=== PATIENT | female | born 1970 | race Caucasian/White ===

== ENCOUNTER 2019-01-03 11:26 | Emergency (ER) | payer SELFPAY ==
[2019-01-03] MEDS ORDERED: MORPHINE 4 MG/ML SYR ONE (13:42)
[2019-01-03] MEDS ORDERED: ONDANSETRON 4 MG/2 ML VIAL ONE (13:42)
--- NOTE | 2019-01-03 13:45 | RAD REPORT ---
EXAM DESCRIPTION: RAD - Hip Right 2 View - 01/03/2019 1:15 pm CLINICAL HISTORY: Trauma, right hip pain COMPARISON: None. FINDINGS: AP and frog-leg views of the right hip were obtained. There is no fracture or dislocation . No AVN or focal femoral head abnormality. Mild degenerative changes involve the articular margins of the acetabulum and femoral head. No joint effusion suspected. No periarticular abnormality. IMPRESSION: Mild degenerative change of the right hip joint. No fracture or acute finding.
[2019-01-03 13:59] LABS: Absolute Lymphocytes (CBC) 1.7 K/uL (0.7-4.9); Basophils % 0.6 % (0-1.3); Eosinophils % 2.6 % (0-4.4); Hematocrit 40.6 % (36.0-45.0); Lymphocytes % 24.2 % (15.3-44.8); Monocytes % 9.4 % (3.3-12.3); RBC Red Blood Cell Count 4.73 M/uL (3.86-4.86)
--- NOTE | 2019-01-03 14:46 | RAD REPORT ---
EXAM DESCRIPTION: CT - Hip Right W Con - 01/03/2019 2:31 pm CLINICAL HISTORY: Right hip pain, trauma COMPARISON: Right hip films January 03 TECHNIQUE: Following nonionic IV contrast administration, axial 2 millimeter thick images the right hip joint were obtained. Sagittal and coronal reformatted images were generated and reviewed. The CT scan was performed using dose optimization techniques as appropriate to a performed exam incl uding one or more of the following: Automated exposure control, adjustment of the mA and/or kV accord ing to patient size (this includes techniques or standardized protocols for targeted exams where dose is matched to indication/reason for exam) and use of iterative reconstruction technique. FINDINGS: No fracture of the proximal right femur. No joint effusion or periarticular acute process. Patient has degenerative change seen as spurring along the articular margins of the acetabulum and f emoral head. No AVN or focal femoral head abnormality. No hematoma, mass or other suspicious soft tissue finding along the right-side pelvic floor or periar ticular soft tissues. IMPRESSION: Mild degenerative change involving the acetabulum and femoral head. No fracture or acute bone finding. No periarticular hematoma, mass or suspicious soft tissue finding.
[2019-01-03] MEDS ORDERED: CYCLOBENZAPRINE 10 MG TAB ONE (15:33)
[2019-01-03] MEDS ORDERED: METHYLPREDNISOLONE 125 MG INJ ONE (15:33)
[2019-01-03] MEDS ORDERED: KETOROLAC 30 MG/ML INJ ONE (15:34)
[2019-01-03] MEDS ORDERED: HYDROCODONE/APAP 7.5/325 MG TAB ONE ×2 (15:34→15:38)
--- NOTE | 2019-01-03 17:37 | EDPHYS ---
Physician Documentation [facility] Name: Marie Ceballos Age: 48 yrs Sex: Female : 1970 Arrival Date: 01/03/2019 Time: 11:27 Bed 5 Private MD: ED Physician German Ward HPI: 01/03 15:25 This 48 yrs old Female presents to ER via Wheelchair with complaints of Hip kdr Pain. 15:25 The patient or guardian reports decreased range of motion, pain. that occurred at home, kdr sustained from Awkward position and slipping with pop in hip joint. Since, she had been able to bear weight and ambulate but has been very painful in the joint. She has no history of prior injury or other associated problem There is no obvious deformity, The patient is able to self ambulate. The patient is able to bear their full body weight. The patient's discomfort radiates to the posterior aspect of left lateral abdomen. Onset: The symptoms/episode began/occurred gradually, 1 week(s) ago. Modifying factors: The symptoms are alleviated by remaining still, the symptoms are aggravated by any movement, extension, external rotation, flexion, internal rotation, weight bearing. Associated signs and symptoms: Loss of consciousness: the patient experienced no loss of consciousness, Pertinent positives: None. Pertinent negatives: abdominal pain, altered mental status, chest pain, diarrhea, dizziness. Severity of symptoms: At their worst the symptoms were severe, in the emergency department the symptoms have improved, moderately. The patient has not experienced similar symptoms in the past. The patient has not recently seen a physician. 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 - Social history:: Smoking status: Patient/guardian denies using tobacco. - Ebola Screening: : Patient denies travel to an Ebola-affected area in the 21 days before illness onset. ROS: 15:25 Constitutional: Negative for fever, chills, and weight loss, Eyes: Negative for injury, kdr pain, redness, and discharge, Neck: Negative for injury, pain, and swelling, Cardiovascular: Negative for chest pain, palpitations, and edema, Respiratory: Negative for shortness of breath, cough, wheezing, and pleuritic chest pain, Abdomen/GI: Negative for abdominal pain, nausea, vomiting, diarrhea, and constipation, Back: Negative for injury and pain, Skin: Negative for injury, rash, and discoloration, Neuro: Negative for headache, weakness, numbness, tingling, and seizure activity. Psych: Negative for depression, anxiety, suicide ideation, homicidal ideation, and hallucinations, Allergy/Immunology: Negative for hives, rash, and allergies, Endocrine: Negative for neck swelling, polydipsia, polyuria, polyphagia, and marked weight changes, Hematologic/Lymphatic: Negative for swollen nodes, abnormal bleeding, and unusual bruising. 15:25 MS/extremity: Positive for decreased range of motion, pain, swelling, tenderness, Negative for ecchymosis, erythema, laceration, tenderness, tingling, warmth. Exam: 15:25 Constitutional: This is a well developed, well nourished patient who is awake, alert, kdr and in no acute distress. Head/Face: Normocephalic, atraumatic. Eyes: Pupils equal round and reactive to light, extra-ocular motions intact. Lids and lashes normal. Conjunctiva and sclera are non-icteric and not injected. Cornea within normal limits. Periorbital areas with no swelling, redness, or edema. Neck: Trachea midline, no thyromegaly or masses palpated, and no cervical lymphadenopathy. Supple, full range of motion without nuchal rigidity, or vertebral point tenderness. No Meningismus. Chest/axilla: Normal chest wall appearance and motion. Nontender with no deformity. No lesions are appreciated. Cardiovascular: Regular rate and rhythm with a normal S1 and S2. No gallops, murmurs, or rubs. Normal PMI, no JVD. No pulse deficits. Respiratory: Lungs have equal breath sounds bilaterally, clear to auscultation and percussion. No rales, rhonchi or wheezes noted. No increased work of breathing, no retractions or nasal flaring. Abdomen/GI: Soft, non-tender, with normal bowel sounds. No distension or tympany. No guarding or rebound. No evidence of tenderness throughout. Back: No spinal tenderness. No costovertebral tenderness. Full range of motion. Skin: Warm, dry with normal turgor. Normal color with no rashes, no lesions, and no evidence of cellulitis. MS/ Extremity: Pulses equal, no cyanosis. Neurovascular intact. Full, normal range of motion. Neuro: Awake and alert, GCS 15, oriented to person, place, time, and situation. Cranial nerves II-XII grossly intact. Motor strength 5/5 in all extremities. Sensory grossly intact. Cerebellar exam normal. Normal gait. Psych: Awake, alert, with orientation to person, place and time. Behavior, mood, and affect are within normal limits. Vital Signs: 11:43 BP 167 / 83; Pulse 89; Resp 18; Temp 97.0; Pulse Ox 97% on R/A; Weight 158.76 kg (M); aj1 Height 5 ft. 11 in. (180.34 cm) (R); 12:00 BP 117 / 74; Pulse 71; Resp 16; Pulse Ox 98% ; bp 14:00 BP 116 / 64; Pulse 62; Resp 18; Pulse Ox 96% ; bp 11:43 Body Mass Index 48.81 (158.76 kg, 180.34 cm) aj1 MDM: 15:13 Patient medically screened. kdr 15:25 Data reviewed: vital signs, nurses notes, lab test result(s), radiologic studies. kdr Counseling: I had a detailed discussion with the patient and/or guardian regarding: the historical points, exam findings, and any diagnostic results supporting the discharge/admit diagnosis, lab results. 01/03 12:42 Order name: CBC with Diff; Complete Time: 14:04 kdr 01/03 12:42 Order name: Chem 7; Complete Time: 14:04 kdr 01/03 12:26 Order name: Hip Right 2 View XRAY; Complete Time: 13:53 kdr 01/03 12:31 Order name: Hip Right W Con; Complete Time: 15:06 EDMS Administered Medications: 13:44 Drug: morphine 4 mg Route: IVP; Site: right antecubital; bp 13:44 Drug: Zofran 4 mg Route: IVP; Site: right antecubital; bp 15:30 Drug: SOLU-Medrol 125 mg Route: IVP; Site: right antecubital; bp 15:31 Drug: [place] (7.5 mg-325 mg) 2 tabs Route: PO; bp 15:31 Drug: Flexeril 10 mg Route: PO; bp 15:31 Drug: TORadol - Ketorolac 15 mg Route: IVP; Site: right antecubital; bp Disposition: 01/03/19 15:13 Discharged to Home. Impression: Pain in right hip. - Condition is Stable. - Discharge Instructions: Musculoskeletal Pain, Hip Pain, Joint Pain, [id number]. - Prescriptions for Ibuprofen 800 mg Oral Tablet - take 1 tablet by ORAL route every 8 hours As needed take with food; 30 tablet. Robaxin 500 mg Oral Tablet - take 2 tablet by ORAL route every 6 hours As needed; 40 tablet. Tramadol 50 mg Oral Tablet - take 1 tablet by ORAL route every 8 hours as needed; 12 tablet. Medrol (Francois) 4 mg Oral Tablets, Dose Pack - take 1 tablet by ORAL route as directed - follow package instructions; 1 packet. - Medication Reconciliation Form, Thank You Letter, Prescription Opioid Use, Work release form form. - Follow up: Private Physician; When: 2 - 3 days; Reason: If symptoms return, Further diagnostic work-up, Recheck today's complaints, Continuance of care, Re-evaluation by your physician. - Problem is new. - Symptoms have improved. Signatures: Dispatcher [employer] Bita Younger RN RN aj1 German Ward MD MD kdr Jace Arora RN RN bp Corrections: (The following items were deleted from the chart) 15:32 15:13 01/03/2019 15:13 Discharged to Home. Impression: Pain in right hip. Condition is bp Stable. Forms are Medication Reconciliation Form, Thank You Letter, Antibiotic Education, Prescription Opioid Use. Follow up: Private Physician; When: 2 - 3 days; Reason: If symptoms return, Further diagnostic work-up, Recheck today's complaints, Continuance of care, Re-evaluation by your physician. Problem is new. Symptoms have improved. kdr
--- NOTE | 2019-01-03 17:37 | ER ---
Nurse's Notes [facility] Name: Marie Ceballos Age: 48 yrs Sex: Female : 1970 Arrival Date: 01/03/2019 Time: 11:27 Bed 5 Private MD: Diagnosis: Pain in right hip Presentation: 01/03 11:40 Presenting complaint: Patient states: "Last year I hurt my hip while I was at work, its aj1 agitated me for the longest, but last week I walked outside and there was a waterhose and it rolled, I didn't see it and my whole leg popped. I can't really raise my leg up very far it just kills me, and then today I hit the threshold with my foot and pains shot up my leg." Patient reports pain to right hip that radiates down to the right knee. Transition of care: patient was not received from another setting of care. Onset of symptoms was December 2018. Risk Assessment: Do you want to hurt yourself or someone else? Patient reports no desire to harm self or others. Initial Sepsis Screen: Does the patient meet any 2 criteria? No. Patient's initial sepsis screen is negative. Does the patient have a suspected source of infection? No. Patient's initial sepsis screen is negative. Care prior to arrival: None. 11:40 Method Of Arrival: Wheelchair aj1 11:40 Acuity: CARMELLA 4 aj1 Triage Assessment: 11:43 General: Appears in no apparent distress. uncomfortable, Behavior is calm, cooperative, aj1 appropriate for age. Pain: Complains of pain in right hip Pain radiates to right leg Pain currently is 7 out of 10 on a pain scale. Pain: Alleviated by repositioning. Neuro: Level of Consciousness is awake, alert, obeys commands. Cardiovascular: Patient's skin is warm and dry. Respiratory: Airway is patent Respiratory effort is even, unlabored, Respiratory pattern is regular, symmetrical. 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 - Social history:: Smoking status: Patient/guardian denies using tobacco. - Ebola Screening: : Patient denies travel to an Ebola-affected area in the 21 days before illness onset. Screenin:45 Abuse screen: Denies threats or abuse. Denies injuries from another. Nutritional bp screening: No deficits noted. Tuberculosis screening: No symptoms or risk factors identified. Fall Risk None identified. Assessment: 11:45 General: SEE TRIAGE NOTE. bp 13:45 Reassessment: ALL CURRENT ORDERS COMPLETED, CT PENDING. bp Vital Signs: 11:43 BP 167 / 83; Pulse 89; Resp 18; Temp 97.0; Pulse Ox 97% on R/A; Weight 158.76 kg (M); aj1 Height 5 ft. 11 in. (180.34 cm) (R); 12:00 BP 117 / 74; Pulse 71; Resp 16; Pulse Ox 98% ; bp 14:00 BP 116 / 64; Pulse 62; Resp 18; Pulse Ox 96% ; bp 11:43 Body Mass Index 48.81 (158.76 kg, 180.34 cm) aj1 ED Course: 11:27 Patient arrived in ED. as 11:31 German Ward MD is Attending Physician. kdr 11:43 Triage completed. aj1 11:43 Arm band placed on Patient placed in an exam room. aj1 11:45 Patient has correct armband on for positive identification. Bed in low position. Call bp light in reach. Side rails up X2. Adult w/ patient. 11:47 Jace Arora, RN is Primary Nurse. bp 13:12 X-ray completed. Patient tolerated procedure well. jb2 13:14 Hip Right 2 View XRAY In Process Unspecified. EDMS 13:15 Radiology exam delayed due to lab results not completed at this time. (BUN/Creatinine). sj 13:44 Inserted saline lock: 20 gauge in right antecubital area, using aseptic technique. bp 14:31 Hip Right W Con In Process Unspecified. EDMS Administered Medications: 13:44 Drug: morphine 4 mg Route: IVP; Site: right antecubital; bp 13:44 Drug: Zofran 4 mg Route: IVP; Site: right antecubital; bp 15:30 Drug: SOLU-Medrol 125 mg Route: IVP; Site: right antecubital; bp 15:31 Drug: [place] (7.5 mg-325 mg) 2 tabs Route: PO; bp 15:31 Drug: Flexeril 10 mg Route: PO; bp 15:31 Drug: TORadol - Ketorolac 15 mg Route: IVP; Site: right antecubital; bp Outcome: 15:13 Discharge ordered by . kdr 15:32 Patient left the ED. bp Signatures: Dispatcher [employer] EDBita Peace RN RN German Denton MD MD kdr Buechter, Jesse jb2 Jones, Susan sj Martinez, Amelia as Peltier, Brian, RN RN bp
== END 2019-01-03 15:32 | disposition home or self-care (01) ==
LOC: ER 11:26
DX: M25.551 Pain in right hip (principal)
CPT/HCPCS: 36415; 73701; 80048; 85025; 96374; 96375; 99283; J2405; J2930; Q9967

== ENCOUNTER 2021-04-30 08:14 | Emergency (ER) | payer OTHER, SELFPAY ==
[2021-04-30 09:22] LABS: Absolute Lymphocytes (CBC) 1.6 K/uL (0.7-4.9); Basophils % 0.7 % (0-1.3); Hematocrit 37.2 % (36.0-45.0); Lymphocytes % 20.7 % (15.3-44.8); MPV 7.8 fL (7.6-11.3); Protime INR 0.94
[2021-04-30] MEDS ORDERED: FUROSEMIDE 40 MG/4 ML VIAL ONE (09:31)
[2021-04-30] MEDS ORDERED: KETOROLAC 30 MG/ML INJ ONE (09:31)
[2021-04-30 09:46] LABS: ALT/SGPT 36 U/L (12-78); AST/SGOT 20 U/L (15-37); Albumin 3.2 g/dL (3.4-5.0); Alkaline Phosphatase 94 U/L (45-117); BUN Blood Urea Nitrogen 19 mg/dL (7-18); Bicarbonate 24 mmol/L (21-32); Bilirubin Direct 0.1 mg/dL (0-0.2); Bilirubin Total 0.3 mg/dL (0.2-1.0); Glucose Level 96 mg/dL (74-106); NT PRO-BNP 215 pg/mL (<125); Sodium Level 140 mmol/L (136-145); Troponin (Emerg Dept Use Only) < 0.02 ng/mL (0.0-0.045)
--- NOTE | 2021-04-30 10:57 | RAD REPORT ---
EXAM DESCRIPTION: [place] Single View04/30/2021 9:27 am CLINICAL HISTORY: Swelling COMPARISON: none FINDINGS: The lungs appear clear of acute infiltrate. The heart is normal size IMPRESSION: No acute abnormalities displayed
--- NOTE | 2021-04-30 11:16 | RAD REPORT ---
EXAM DESCRIPTION: CT - Hip Right Wo Con - 04/30/2021 11:00 am CLINICAL HISTORY: Right hip pain status post fall COMPARISON: X-rays on the same date. TECHNIQUE: Computed axial tomography of the right hip were obtained. Coronal and sagittal reconstruc tion was performed. All CT scans are performed using dose optimization technique as appropriate and may include automated exposure control or mA/KV adjustment according to patient size. FINDINGS: Moderate osteoarthritis involves the right hip consisting of osteophytes and joint space n arrowing. No fracture or dislocation is seen. The surrounding muscles of the right hip are normal size and density. IMPRESSION: No evidence of a right hip fracture.
--- NOTE | 2021-04-30 11:58 | EDPHYS ---
Physician Documentation [facility] Name: Marie Ceballos Age: 50 yrs Sex: Female : 1970 Arrival Date: 04/30/2021 Time: 08:18 Bed 5 Private MD: ED Physician German Ward HPI: 04/30 08:49 This 50 yrs old Female presents to ER via Wheelchair with complaints of Leg kdr Swelling, Feet Swelling. 08:49 Swelling and pain of her lower extremities for the past few weeks. Onset: The kdr symptoms/episode began/occurred gradually, 2 week(s) ago. Severity of symptoms: At their worst the symptoms were mild moderate just prior to arrival, in the emergency department the symptoms are unchanged. The patient has not experienced similar symptoms in the past. The patient has not recently seen a physician. Patient states that she has been attending her father who 2 days ago. During that. Time she has been staying with him in the hospital and has not been able to get her body completely flat with her legs dependent for most of the last 2 weeks. As result she has had increased swelling to her lower extremities. She has not had this kind of problem before. She denies chest pain or shortness of breath.. 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 - Social history:: Smoking status: Patient denies any tobacco usage or history of. ROS: 08:49 Constitutional: Negative for fever, chills, and weight loss, Eyes: Negative for injury, kdr pain, redness, and discharge, ENT: Negative for injury, pain, and discharge, Neck: Negative for injury, pain, and swelling, Cardiovascular: Negative for chest pain, palpitations, and edema, Respiratory: Negative for shortness of breath, cough, wheezing, and pleuritic chest pain, Abdomen/GI: Negative for abdominal pain, nausea, vomiting, diarrhea, and constipation, Back: Negative for injury and pain, : Negative for injury, bleeding, discharge, and swelling, MS/Extremity: Negative for injury and deformity, Skin: Negative for injury, rash, and discoloration, Neuro: Negative for headache, weakness, numbness, tingling, and seizure activity. Psych: Negative for depression, anxiety, suicide ideation, homicidal ideation, and hallucinations, Allergy/Immunology: Negative for hives, rash, and allergies, Endocrine: Negative for neck swelling, polydipsia, polyuria, polyphagia, and marked weight changes, Hematologic/Lymphatic: Negative for swollen nodes, abnormal bleeding, and unusual bruising. 08:49 Cardiovascular: Positive for edema. Exam: 08:49 Constitutional: This is a well developed, well nourished patient who is awake, alert, kdr and in no acute distress. Head/Face: Normocephalic, atraumatic. Eyes: Pupils equal round and reactive to light, extra-ocular motions intact. Lids and lashes normal. Conjunctiva and sclera are non-icteric and not injected. Cornea within normal limits. Periorbital areas with no swelling, redness, or edema. Neck: Trachea midline, no thyromegaly or masses palpated, and no cervical lymphadenopathy. Supple, full range of motion without nuchal rigidity, or vertebral point tenderness. No Meningismus. Chest/axilla: Normal chest wall appearance and motion. Nontender with no deformity. No lesions are appreciated. Cardiovascular: Regular rate and rhythm with a normal S1 and S2. No gallops, murmurs, or rubs. Normal PMI, no JVD. No pulse deficits. Respiratory: Lungs have equal breath sounds bilaterally, clear to auscultation and percussion. No rales, rhonchi or wheezes noted. No increased work of breathing, no retractions or nasal flaring. Abdomen/GI: Soft, non-tender, with normal bowel sounds. No distension or tympany. No guarding or rebound. No evidence of tenderness throughout. Back: No spinal tenderness. No costovertebral tenderness. Full range of motion. Skin: Warm, dry with normal turgor. Normal color with no rashes, no lesions, and no evidence of cellulitis. MS/ Extremity: Pulses equal, no cyanosis. Neurovascular intact. Full, normal range of motion. Neuro: Awake and alert, GCS 15, oriented to person, place, time, and situation. Cranial nerves II-XII grossly intact. Motor strength 5/5 in all extremities. Sensory grossly intact. Cerebellar exam normal. Normal gait. Psych: Awake, alert, with orientation to person, place and time. Behavior, mood, and affect are within normal limits. 08:49 Cardiovascular: Edema: 3+ edema to level of left midcalf, left ankle, left foot, left toes, right midcalf, right ankle, right foot and right toes. Vital Signs: 08:31 BP 119 / 88; Pulse 88; Resp 17; Temp 96.9; Pulse Ox 97% on R/A; Weight 154.22 kg (R); jl7 Height 5 ft. 11 in. (180.34 cm); Pain 9/10; 09:36 BP 123 / 70; Pulse 76; Resp 16; Pulse Ox 100% ; bp 11:00 BP 143 / 76; Pulse 81; Resp 16; Pulse Ox 100% ; bp 12:23 BP 127 / 75; Pulse 79; Resp 17; Temp 98.1; Pulse Ox 100% ; bp 08:31 Body Mass Index 47.42 (154.22 kg, 180.34 cm) jl7 MDM: 08:49 Data reviewed: vital signs, nurses notes, lab test result(s), radiologic studies. kdr Counseling: I had a detailed discussion with the patient and/or guardian regarding: the historical points, exam findings, and any diagnostic results supporting the discharge/admit diagnosis, lab results, radiology results, the need for outpatient follow up. 11:58 Patient medically screened. kdr 04/30 08:45 Order name: Basic Metabolic Panel kdr 04/30 08:45 Order name: CBC with Diff; Complete Time: 10:16 kdr 04/30 08:45 Order name: LFT's; Complete Time: 10:16 kdr 04/30 08:45 Order name: Magnesium; Complete Time: 10:16 kdr 04/30 08:45 Order name: NT PRO-BNP; Complete Time: 10:16 kdr 04/30 08:45 Order name: PT-INR; Complete Time: 10:16 kdr 04/30 08:45 Order name: Troponin (emerg Dept Use Only); Complete Time: 10:16 kdr 04/30 08:45 Order name: XRAY Chest (1 view); Complete Time: 11:54 kdr 10/15 08:45 Order name: IV Saline Lock; Complete Time: 09:01 kdr 04/30 08:45 Order name: Labs collected and sent; Complete Time: 09:01 kdr 04/30 08:45 Order name: Basic Metabolic Panel; Complete Time: 10:16 EDMS 04/30 10:44 Order name: Hip Right Wo Con; Complete Time: 11:54 EDMS 04/30 08:45 Order name: O2 Per Protocol; Complete Time: 09:01 kdr 04/30 08:45 Order name: O2 Sat Monitoring; Complete Time: 09: kdr Administered Medications: 09:00 Drug: Lasix (furosemide) 40 mg Route: IVP; Site: right forearm; bp 09:57 Follow up: Response: No adverse reaction bp 09:00 Drug: Ketorolac 15 mg Route: IVP; Site: right forearm; bp 09:57 Follow up: Response: No adverse reaction bp Disposition Summary: 04/30/21 11:58 Discharge Ordered Location: Home kdr Condition: Stable kdr Diagnosis - Edema, unspecified kdr - Peripheral, lower extremity edema kdr - Right hip pain kdr Followup: kdr - With: Private Physician - When: 2 - 3 days - Reason: If symptoms return, Further diagnostic work-up, Recheck today's complaints, Continuance of care, Re-evaluation by your physician Discharge Instructions: - Discharge Summary Sheet kdr - Edema, [id number] kdr - Hip Pain kdr Forms: - Medication Reconciliation Form kdr - Thank You Letter kdr - Prescription Opioid Use kdr Prescriptions: - Lasix 20 mg Oral Tablet - take 1 tablet by ORAL route once daily; 20 tablet; Refills: 0, Product kdr Selection Permitted - Tramadol 50 mg Oral Tablet - take 1 tablet by ORAL route every 8 hours as needed; 12 tablet; Refills: 0, kdr Product Selection Permitted Signatures: [facility] German Ward MD MD kdr Raghu Gonzalez RN RN jl7 Jace Arora RN RN bp Corrections: (The following items were deleted from the chart) 08:34 08:33 PSHx: Total abdominal hysterectomy; joshua jl7
--- NOTE | 2021-04-30 11:58 | ER ---
Nurse's Notes [facility] Name: Marie Ceballos Age: 50 yrs Sex: Female : 1970 Arrival Date: 04/30/2021 Time: 08:18 Bed 5 Private MD: Diagnosis: Edema, unspecified;Peripheral, lower extremity edema;Right hip pain Presentation: 04/30 08:31 Chief complaint: Patient states: Bilateral leg and feet swelling and pain x 1.5 weeks. jl7 Coronavirus screen: At this time, the client does not indicate any symptoms associated with coronavirus-19. Ebola Screen: No symptoms or risks identified at this time. Initial Sepsis Screen: Does the patient meet any 2 criteria? No. Patient's initial sepsis screen is negative. Does the patient have a suspected source of infection? No. Patient's initial sepsis screen is negative. Risk Assessment: Do you want to hurt yourself or someone else? Patient reports no desire to harm self or others. Onset of symptoms was April 19, 2021. 08:31 Method Of Arrival: Wheelchair jl7 08:31 Acuity: CARMELLA 3 jl7 Triage Assessment: 08:33 General: Appears in no apparent distress. uncomfortable, Behavior is calm, cooperative, jl7 appropriate for age. Pain: Complains of pain in right leg and left leg Pain currently is 9 out of 10 on a pain scale. DEAN: 08:33 LMP N/A - Hysterectomy jl7 Historical: - Allergies: 08:33 No Known Allergies; jl7 - Home Meds: 08:33 None [Active]; jl7 - PMHx: 08:33 None; jl7 - PSHx: 08:33 Cholecystectomy; Appendectomy; Tonsillectomy; partial hysterectomy; left knee; jl7 - Immunization history:: Adult Immunizations not up to date, Client reports having NOT received the Covid vaccine. - Social history:: Smoking status: Patient denies any tobacco usage or history of. Screenin:45 Abuse screen: Denies threats or abuse. Denies injuries from another. Nutritional bp screening: No deficits noted. Tuberculosis screening: No symptoms or risk factors identified. Fall Risk None identified. Assessment: 08:45 General: Appears in no apparent distress. uncomfortable, obese, Behavior is bp cooperative, appropriate for age, anxious. Pain: Complains of pain in right leg and left leg. Neuro: Level of Consciousness is awake, alert, obeys commands, Oriented to Appropriate for age. Cardiovascular: Patient's skin is warm and dry. Rhythm is sinus rhythm. Respiratory: Reports shortness of breath on exertion. GI: Abdomen is non-distended, obese. : No signs and/or symptoms were reported regarding the genitourinary system. EENT: No deficits noted. Derm: Skin is red, BILATERAL CALVES. Musculoskeletal: Swelling present in right leg and left leg. 09:45 Reassessment: No changes from previously documented assessment. Patient and/or family bp updated on plan of care and expected duration. Pain level reassessed. Patient is alert, oriented x 3, equal unlabored respirations, skin warm/dry/pink. PT DIARESING DEFFECTIVELY. VSS STABLE ON MONITOR. 11:00 Reassessment: No changes from previously documented assessment. Patient and/or family bp updated on plan of care and expected duration. Pain level reassessed. Patient is alert, oriented x 3, equal unlabored respirations, skin warm/dry/pink. 12:21 Reassessment: PT D/C HOME AMBULATORY WITH FAMILY, DX WITH PERIPHERAL EDEMA. bp Vital Signs: 08:31 BP 119 / 88; Pulse 88; Resp 17; Temp 96.9; Pulse Ox 97% on R/A; Weight 154.22 kg (R); jl7 Height 5 ft. 11 in. (180.34 cm); Pain 9/10; 09:36 BP 123 / 70; Pulse 76; Resp 16; Pulse Ox 100% ; bp 11:00 BP 143 / 76; Pulse 81; Resp 16; Pulse Ox 100% ; bp 12:23 BP 127 / 75; Pulse 79; Resp 17; Temp 98.1; Pulse Ox 100% ; bp 08:31 Body Mass Index 47.42 (154.22 kg, 180.34 cm) jl7 ED Course: 08:18 Patient arrived in ED. as 08:23 German Ward MD is Attending Physician. kdr 08:33 Triage completed. jl7 08:33 Arm band placed on right wrist. jl7 08:45 Patient has correct armband on for positive identification. Bed in low position. Call bp light in reach. Side rails up X2. 08:50 Jace Arora, STEVEN is Primary Nurse. bp 09:00 Inserted saline lock: 20 gauge in right forearm, using aseptic technique. Blood bp collected. 09:27 XRAY Chest (1 view) In Process Unspecified. EDMS 11:00 Hip Right Wo Con In Process Unspecified. EDMS 12:23 No provider procedures requiring assistance completed. IV discontinued, intact, bp bleeding controlled, No redness/swelling at site. Pressure dressing applied. Administered Medications: 09:00 Drug: Lasix (furosemide) 40 mg Route: IVP; Site: right forearm; bp 09:57 Follow up: Response: No adverse reaction bp 09:00 Drug: Ketorolac 15 mg Route: IVP; Site: right forearm; bp 09:57 Follow up: Response: No adverse reaction bp Outcome: 11:58 Discharge ordered by . kdr 12:23 Discharged to home ambulatory. bp 12:23 Condition: stable 12:23 Discharge instructions given to patient, Instructed on discharge instructions, follow up and referral plans. medication usage, Demonstrated understanding of instructions, follow-up care, medications, Prescriptions given X 2. 12:24 Patient left the ED. bp Signatures: Dispatcher [employer] EDMS German Ward MD MD kdr Martinez, Amelia as Leal, Jahala, RN RN [email or web address] Jace Arora, RN RN bp Corrections: (The following items were deleted from the chart) 08:34 08:33 PSHx: Total abdominal hysterectomy; joshua jl7
[2021-04-30 12:30] VITALS: O2SAT 100
[2021-04-30 12:33] VITALS: BP 127/75; TEMP 98.1
== END 2021-04-30 12:24 | disposition home or self-care (01) ==
LOC: ER 08:14
DX: R60.0 Localized edema (principal); M25.551 Pain in right hip
CPT/HCPCS: 85025; 80048; 36415; 83735; 85610; 80076; 84484; 83880; 73700; 71045; 96375; 96374; 99284; J1940

== ENCOUNTER 2021-05-09 10:26 | Observation (INO) | payer OTHER ==
--- NOTE | 2021-05-09 11:15 | RAD REPORT ---
EXAM DESCRIPTION: RAD - Chest Single View - 05/09/2021 11:06 am CLINICAL HISTORY: Cough;Dyspnea Chest pain. COMPARISON: Chest Single View dated 04/30/2021 FINDINGS: Portable technique limits examination quality. Interstitial markings are mildly prominent which may represent a viral infection or bronchitis. The h eart is upper limit normal in size. No displaced fractures.
[2021-05-09] MEDS ORDERED: ASPIRIN 81 MG CHEWABLE TABLET ONE (11:31)
[2021-05-09] MEDS ORDERED: FAMOTIDINE 20 MG/2 ML VIAL IV ONE (11:31)
--- NOTE | 2021-05-09 11:54 | EDPHYS ---
Physician Documentation [facility] Name: Marie Ceballos Age: 50 yrs Sex: Female : 1970 Arrival Date: 05/09/2021 Time: 10:28 Bed 8 Private MD: ANNA Physician Sushant Rosario HPI: 05/09 10:51 This 50 yrs old Female presents to ER via Unassigned with complaints of Chest [place] Pressure, Leg Swelling, Shortness Of Breath. 10:51 The patient or guardian reports chest pain that is located primarily in the anterior [place] chest wall, bilaterally. Onset: 2 day(s) ago. The pain does not radiate. Associated signs and symptoms: Pertinent positives: lower extremity swelling, shortness of breath. The chest pain is described as a pressure. Modifying factors: The symptoms are alleviated by nothing. the symptoms are aggravated by nothing. Severity of pain: At its worst the pain was mild in the emergency department the pain is unchanged. The patient has not experienced similar symptoms in the past. Historical: - Allergies: 10:52 No Known Allergies; ss - Home Meds: 10:52 Lasix 40 mg Oral tab 1 tab once daily [Active]; ss - PMHx: 10:52 Congestive heart failure; ss - PSHx: 10:52 Appendectomy; Cholecystectomy; left knee; partial hysterectomy; Tonsillectomy; ss - Immunization history:: Adult Immunizations up to date, Client reports having NOT received the Covid vaccine. - Social history:: Smoking status: Patient denies any tobacco usage or history of. - Family history:: not pertinent. ROS: 10:51 Constitutional: Negative for fever, chills, and weight loss, Eyes: Negative for injury, [place] pain, redness, and discharge, ENT: Negative for injury, pain, and discharge, Neck: Negative for injury, pain, and swelling, Cardiovascular: Negative for chest pain, palpitations, and edema, Abdomen/GI: Negative for abdominal pain, nausea, vomiting, diarrhea, and constipation, Back: Negative for injury and pain, : Negative for injury, bleeding, discharge, and swelling, MS/Extremity: Negative for injury and deformity, Skin: Negative for injury, rash, and discoloration, Neuro: Negative for headache, weakness, numbness, tingling, and seizure, Psych: Negative for depression, anxiety, suicide ideation, homicidal ideation, and hallucinations, Allergy/Immunology: Negative for hives, rash, and allergies, Endocrine: Negative for neck swelling, polydipsia, polyuria, polyphagia, and marked weight changes, Hematologic/Lymphatic: Negative for swollen nodes, abnormal bleeding, and unusual bruising. 10:51 Respiratory: Positive for cough, shortness of breath, at rest. 10:51 MS/extremity: Positive for decreased range of motion, pain, swelling, tenderness, warmth, of the right leg and left leg. Exam: 10:51 Constitutional: This is a well developed, well nourished patient who is awake, alert, [place] and in no acute distress. Head/Face: Normocephalic, atraumatic. Eyes: Pupils equal round and reactive to light, extra-ocular motions intact. Lids and lashes normal. Conjunctiva and sclera are non-icteric and not injected. Cornea within normal limits. Periorbital areas with no swelling, redness, or edema. ENT: Nares patent. No nasal discharge, no septal abnormalities noted. Tympanic membranes are normal and external auditory canals are clear. Oropharynx with no redness, swelling, or masses, exudates, or evidence of obstruction, uvula midline. Mucous membranes moist. Neck: Trachea midline, no thyromegaly or masses palpated, and no cervical lymphadenopathy. Supple, full range of motion without nuchal rigidity, or vertebral point tenderness. No Meningismus. Chest/axilla: Normal chest wall appearance and motion. Nontender with no deformity. No lesions are appreciated. Cardiovascular: Regular rate and rhythm with a normal S1 and S2. No gallops, murmurs, or rubs. Normal PMI, no JVD. No pulse deficits. Respiratory: Lungs have equal breath sounds bilaterally, clear to auscultation and percussion. No rales, rhonchi or wheezes noted. No increased work of breathing, no retractions or nasal flaring. Abdomen/GI: Soft, non-tender, with normal bowel sounds. No distension or tympany. No guarding or rebound. No evidence of tenderness throughout. Back: No spinal tenderness. No costovertebral tenderness. Full range of motion. Skin: Warm, dry with normal turgor. Normal color with no rashes, no lesions, and no evidence of cellulitis. Neuro: Awake and alert, GCS 15, oriented to person, place, time, and situation. Cranial nerves II-XII grossly intact. Motor strength 5/5 in all extremities. Sensory grossly intact. Cerebellar exam normal. Normal gait. Psych: Awake, alert, with orientation to person, place and time. Behavior, mood, and affect are within normal limits. 10:51 Musculoskeletal/extremity: ROM: full active range of motion, full passive range of motion, Circulation is intact in all extremities. Sensation intact. Compartment Syndrome exam of affected extremity: is normal. DVT Exam: negative Homans' sign noted on exam, no appreciated bluish discoloration, pain, swelling, tenderness, erythema, increased warmth, that is moderate, of the right leg and left leg. Vital Signs: 10:28 BP 141 / 83; Pulse 88; Resp 18; Temp 97.3(TE); Pulse Ox 99% on R/A; Weight 181.44 kg; ss Height 5 ft. 11 in. (180.34 cm); Pain 9/10; 11:43 BP 127 / 73; Pulse 75; Resp 20; Pulse Ox 100% ; ch5 11:57 BP 127 / 73; Pulse 77; Resp 18; Pulse Ox 99% on R/A; Pain 9/10; tw5 13:34 BP 118 / 73; Pulse 82; Resp 18; Pulse Ox 100% on R/A; ch5 10:28 Body Mass Index 55.79 (181.44 kg, 180.34 cm) ss MDM: 10:34 Patient medically screened. [place] 10:54 Differential diagnosis: abnormal EKG, acute pericarditis, anxiety, pancreatitis, [place] pneumonia, pulmonary embolus, stable angina, unstable angina. HEART Score: ECG: Normal (0), Age: > 45 and < 65 years (1), Risk Factors: > or = 3 Risk factors for atherosclerotic disease (2), [Hypertension] [+ Family HX] [Obesity] Troponin: < or = 1 x Normal Limit (0). The patient was given aspirin in the Emergency Department. The patient's deep vein thrombosis risk score was calculated as follows: the affected calf is swollen more than 3 cm when compared to the asymptomatic extremity (1.0 Pts) pitting edema is noted only to the symptomatic leg (1.0 Pts0 Total Score: 1 to 2 points. This patient was found to be at moderate risk for a deep vein thrombosis by using the Well's assessment criteria. The patient's pulmonary embolism risk score was calculated as follows: Total Score: 0-2 points. This patient was found to be at low risk for a pulmonary embolism by using the Well's assessment criteria. CIARA Risk Score: 1 - Three or more CAD risk factors, TOTAL SCORE = 1. Data reviewed: vital signs, nurses notes, lab test result(s), EKG, radiologic studies, CT scan, doppler, plain films. Data interpreted: monitor worker: rate is 88 beats/min, rhythm is regular, Pulse oximetry: on room air is 99 %. Test interpretation: by ED physician or midlevel provider: ECG, plain radiologic studies. Counseling: I had a detailed discussion with the patient and/or guardian regarding: the historical points, exam findings, and any diagnostic results supporting the discharge/admit diagnosis, the presence of at least one elevated blood pressure reading (>120/80) during this emergency department visit, lab results, radiology results, the need for further work-up and treatment in the hospital. 05/09 10:51 Order name: Basic Metabolic Panel [facility] 05/09 10:51 Order name: CBC with Diff [facility] 05/09 10:51 Order name: LFT's [facility] 05/09 10:51 Order name: Magnesium [facility] 05/09 10:51 Order name: NT PRO-BNP [facility] 05/09 10:51 Order name: PT-INR [facility] 05/09 10:51 Order name: Troponin (emerg Dept Use Only) [facility] 05/09 10:51 Order name: Lipase [facility] 05/09 10:51 Order name: Blood Culture Adult (2) [facility] 05/09 10:51 Order name: Lactate; Complete Time: 12:38 [facility] 05/09 10:51 Order name: Basic Metabolic Panel [facility] 05/09 10:51 Order name: CBC with Automated Diff; Complete Time: 12:38 [facility] 05/09 10:51 Order name: Liver (Hepatic) Function [facility] 05/09 10:51 Order name: XRAY Chest (1 view); Complete Time: 11:32 [facility] 05/09 10:51 Order name: EKG; Complete Time: 10:52 05/09 10:51 Order name: Cardiac monitoring; Complete Time: 10:54 [facility] 05/09 10:51 Order name: EKG - Nurse/Tech; Complete Time: 10:54 [facility] 05/09 10:51 Order name: US Extremity Venous W Compression Otoniel [facility] 05/09 10:51 Order name: CT Chest For PE Angio [facility] 05/09 10:51 Order name: Magnesium [facility] 05/09 10:51 Order name: NT PRO-BNP [facility] 05/09 10:51 Order name: Protime (+INR); Complete Time: 12:38 [facility] 05/09 10:51 Order name: Troponin (Emerg Dept Use Only) [facility] 05/09 12:05 Order name: COVID-19/FLU A+B; Complete Time: 12:06 [facility] 05/09 13:18 Order name: CT [facility] 05/09 10:51 Order name: IV Saline Lock; Complete Time: 11:54 [facility] 05/09 10:51 Order name: Labs collected and sent; Complete Time: 11:30 [facility] 05/09 10:51 Order name: O2 Per Protocol; Complete Time: 10:54 [facility] 05/09 10:51 Order name: O2 Sat Monitoring; Complete Time: 10:54 [place] Administered Medications: 11:29 Drug: Pepcid (famotidine) 20 mg Route: IVP; Site: right antecubital; ch5 11:56 Follow up: Response: No adverse reaction tw5 11:30 Drug: Aspirin Chewable Tablet 324 mg Route: PO; ch5 11:56 Follow up: Response: No adverse reaction tw5 11:57 Drug: Lovenox (enoxaparin) 100 mg Route: Sub-Q; Site: left lower abdomen; tw5 13:31 Follow up: Response: No adverse reaction ss 13:31 Drug: Lasix (furosemide) 20 mg Route: IVP; Site: left antecubital; ch5 Disposition Summary: 05/09/21 11:53 Hospitalization Ordered Hospitalization Status: Observation [place] Provider: Abhinav Cruz cha Location: Telemetry/MedSurg (observation) [place] Condition: Stable [place] Problem: new [place] Symptoms: have improved [place] Bed/Room Type: Standard [place] Room Assignment: 207(05/09/21 12:53) dw Diagnosis - Morbid (severe) obesity due to excess calories [place] - Edema, unspecified [place] - Cardiomegaly [place] - Chest pain, unspecified [place] - Systolic (congestive) heart failure [place] Forms: - Medication Reconciliation Form [place] - SBAR form [place] Signatures: Dispatcher [employer] EDMS Latanya Cloud RN RN dw Anderson, Corey, MD MD cha Smirch, Shelby, RN RN Ralf Veliz RN RN [facility] Cecy Parkinson 5 Corrections: (The following items were deleted from the chart) 11:27 10:52 CORONAVIRUS+BRZ ordered. EDSD EDMS 12:53 11:53 [place] olivas
--- NOTE | 2021-05-09 11:54 | ER ---
Nurse's Notes [facility] Name: Marie Ceballos Age: 50 yrs Sex: Female : 1970 Arrival Date: 05/09/2021 Time: 10:28 Bed 8 Private MD: Diagnosis: Morbid (severe) obesity due to excess calories;Edema, unspecified;Cardiomegaly;Chest pain, unspecified;Systolic (congestive) heart failure Presentation: 05/09 10:28 Chief complaint: Patient states: Bilateral leg swelling and redness that began 3 weeks ss ago with intermittent shortness of breath and chest tightness. Pt was seen in the ER and told to increase her Lasix from 20 mg to 40 mg. Cardiology appointment is scheduled fro Monday. Coronavirus screen: Client denies travel out of the [place] in the last 14 days. Ebola Screen: Patient denies exposure to infectious person. Patient denies travel to an Ebola-affected area in the 21 days before illness onset. Initial Sepsis Screen: Does the patient meet any 2 criteria? No. Patient's initial sepsis screen is negative. Does the patient have a suspected source of infection? No. Patient's initial sepsis screen is negative. Risk Assessment: Do you want to hurt yourself or someone else? Patient reports no desire to harm self or others. Onset of symptoms was April 18, 2021. 10:28 Method Of Arrival: Wheelchair ss 10:28 Acuity: CARMELLA 3 ss Triage Assessment: 11:50 General: Appears in no apparent distress. Behavior is calm, cooperative. ch5 11:50 Pain: Complains of pain in chest. ch5 Historical: - Allergies: 10:52 No Known Allergies; ss - Home Meds: 10:52 Lasix 40 mg Oral tab 1 tab once daily [Active]; ss - PMHx: 10:52 Congestive heart failure; ss - PSHx: 10:52 Appendectomy; Cholecystectomy; left knee; partial hysterectomy; Tonsillectomy; ss - Immunization history:: Adult Immunizations up to date, Client reports having NOT received the Covid vaccine. - Social history:: Smoking status: Patient denies any tobacco usage or history of. - Family history:: not pertinent. Screenin:31 Abuse screen: Denies threats or abuse. Denies injuries from another. Nutritional ch5 screening: No deficits noted. Tuberculosis screening: No symptoms or risk factors identified. Fall Risk None identified. Assessment: 11:31 Reassessment: No changes from previously documented assessment. 5 11:53 Pain: Pain radiates to right leg and left leg Pain began for two weeks. Cardiovascular: tw5 Heart tones S1 S2 present. Respiratory: Reports shortness of breath. 11:57 Cardiovascular: Pulses are palpable in right dorsalis pedis artery and left dorsalis tw5 pedis artery Edema is 3+ to left midcalf, left ankle, left foot, left toes, right midcalf, right ankle, right foot and right toes. 12:50 Reassessment: Pt to CT VIA stretcher. ss 13:20 Reassessment: Back from CT. Awaiting results. PT to restroom VIA wheelchair to give ss urine specimen. Vital Signs: 10:28 BP 141 / 83; Pulse 88; Resp 18; Temp 97.3(TE); Pulse Ox 99% on R/A; Weight 181.44 kg; ss Height 5 ft. 11 in. (180.34 cm); Pain 9/10; 11:43 BP 127 / 73; Pulse 75; Resp 20; Pulse Ox 100% ; ch5 11:57 BP 127 / 73; Pulse 77; Resp 18; Pulse Ox 99% on R/A; Pain 9/10; tw5 13:34 BP 118 / 73; Pulse 82; Resp 18; Pulse Ox 100% on R/A; ch5 10:28 Body Mass Index 55.79 (181.44 kg, 180.34 cm) ED Course: 10:28 Patient arrived in ED. as 10:34 Sushant Rosario MD is Attending Physician. [facility] 10:38 Patient has correct armband on for positive identification. Placed in gown. Bed in low mh5 position. Call light in reach. Side rails up X2. Adult w/ patient. Warm blanket given. teletypesetter monitor on. Pulse ox on. NIBP on. 10:52 Triage completed. 10:52 Arm band placed on right wrist. 11:00 EKG done, by ED staff, reviewed by Sushant Rosario MD. 5 11:06 XRAY Chest (1 view) In Process Unspecified. EDMS 11:15 Ralf Veliz RN is Primary Nurse. [facility] 11:15 COVID swab sent to lab. mh5 11:30 Troponin (emerg Dept Use Only) Sent. ch5 11:30 PT-INR Sent. ch5 11:30 NT PRO-BNP Sent. ch5 11:30 Magnesium Sent. ch5 11:30 LFT's Sent. ch5 11:30 CBC with Diff Sent. ch5 11:30 Lipase Sent. ch5 11:30 Blood Culture Adult (2) Sent. ch5 11:30 Lactate Sent. ch5 11:30 Basic Metabolic Panel Sent. ch5 11:30 Liver (Hepatic) Function Sent. ch5 11:30 CBC with Automated Diff Sent. ch5 11:30 NT PRO-BNP Sent. ch5 11:30 Magnesium Sent. ch5 11:30 Protime (+INR) Sent. ch5 11:30 Troponin (Emerg Dept Use Only) Sent. ch5 11:31 No provider procedures requiring assistance completed. ch5 11:41 Inserted saline lock: 22 gauge in left antecubital area, using aseptic technique. ch5 11:52 Abhinav Cruz is Hospitalizing Provider. [facility] 11:54 Basic Metabolic Panel Sent. 5 11:54 Lipase Sent. 5 11:57 Ultrasound at the bedside. tw5 11:57 Patient maintains SpO2 saturation greater than 95% on room air. tw5 12:35 US Extremity Venous W Compression Otoniel In Process Unspecified. EDMS 13:34 Patient admitted, IV remains in place. ch5 Administered Medications: 11:29 Drug: Pepcid (famotidine) 20 mg Route: IVP; Site: right antecubital; ch5 11:56 Follow up: Response: No adverse reaction tw5 11:30 Drug: Aspirin Chewable Tablet 324 mg Route: PO; ch5 11:56 Follow up: Response: No adverse reaction tw5 11:57 Drug: Lovenox (enoxaparin) 100 mg Route: Sub-Q; Site: left lower abdomen; tw5 13:31 Follow up: Response: No adverse reaction 13:31 Drug: Lasix (furosemide) 20 mg Route: IVP; Site: left antecubital; 5 Outcome: 11:53 Decision to Hospitalize by Provider. [place] 13:34 Admitted to Med/surg 5 13:34 Condition: improved 13:34 Instructed on the need for admit. 14:02 Patient left the ED. iw Signatures: Dispatcher [employer] EDMS Sushant Rosario MD MD cha Martinez, Amelia as Rosalva Rodriguez, RN RN Brandi Burk RN RN ss Martinez, Maria [facility] Ralf Veliz RN RN [facility] Cecy Parkinson [facility] Corrections: (The following items were deleted from the chart) 11:27 11:15 CORONAVIRUS+ drawn and sent. [address] 13:33 12:50 General: Appears in no apparent distress. Behavior is calm, cooperative, [place] [id number]
[2021-05-09 12:05] LABS: SARS-COV-2 RT PCR NEGATIVE (NEGATIVE)
[2021-05-09 12:15] LABS: Absolute Lymphocytes (CBC) 1.6 K/uL (0.7-4.9); Basophils % 0.6 % (0-1.3); Hematocrit 38.5 % (36.0-45.0); Lymphocytes % 22.9 % (15.3-44.8); MPV 7.8 fL (7.6-11.3); RBC Red Blood Cell Count 4.54 M/uL (3.86-4.86)
[2021-05-09 12:16] LABS: Protime INR 1.03
[2021-05-09] MEDS ORDERED: ENOXAPARIN 100 MG/ML SYR SQ ONE (12:17)
--- NOTE | 2021-05-09 12:36 | P.HP ---
Certification for Inpatient Patient admitted to: Inpatient With expected LOS: >2 Midnights Practitioner: I am a practitioner with admitting privileges, knowledge of patient current condition, hospital course, and medical plan of care. Services: Services provided to patient in accordance with Admission requirements found in Title 42 Section 412.3 of the Code of Federal Regulations Patient History Date of Service: 05/09/21 Reason for admission: Shortness of breath, lower extremity swelling History of Present Illness: 50-year-old morbidly obese woman with no known past medical history presented to the emergency department with a complaint bilateral lower extremity redness and swelling that has not responded outpatient therapy with lasix. She also reports progressive shortness of breath. This is her 3rd visit to the ED over the past 2 weeks. She denied any chest pain. She stated she is undergoing work-up for weight reduction surgery. CTA thorax done in the emergency department demonstrated mild pulmonary edema. No leukocytosis. Initial troponin negative. Patient is admitted for CHF exacerbation that has failed outpatient therapy. Allergies No Known Allergies Allergy (Verified 05/09/21 14:03) Home Medications: Furosemide [Lasix] 40 mg PO DAILY 05/09/21 Potassium Chloride 10 meq PO DAILY 05/09/21 - Past Medical/Surgical History -: Morbid obesity -: Cholecystectomy -: Left knee arthroscopy -: Appendectomy -: Partial hysterectomy - Family History Father -: Heart disease Mother -: Heart disease - Social History Smoking Status: Never smoker Alcohol use: No CD- Drugs: No Place of Residence: Home Review of Systems Other: Patient denied any fever or loss of appetite. She denied any chest pain or palpitation. Except as documented, all other systems reviewed and negative. Physical Examination - Physical Exam General: Alert, In no apparent distress, Oriented x3, Obese HEENT: Atraumatic, PERRLA, Mucous membr. moist/pink, EOMI, Sclerae nonicteric Neck: Supple, JVD not distended Respiratory: Clear to auscultation bilaterally, Normal air movement Cardiovascular: Regular rate/rhythm, Normal S1 S2, No murmurs, Edema (Bilateral lower extremities) Gastrointestinal: Normal bowel sounds, Soft and benign, Non-distended, No tenderness Musculoskeletal: Swelling (Bilateral legs), Tenderness (Bilateral legs) Integumentary: No breakdown, Erythema (Bilateral legs) Neurological: Normal speech, Normal strength at 5/5 x4 extr, Cranial nerves 3-12 intact Lymphatics: No axilla or inguinal lymphadenopathy - Studies Laboratory Data (last 24 hrs) 05/09/21 11:26: PT 11.9, INR 1.03 05/09/21 11:26: WBC 7.10, Hgb 12.7, Hct 38.5, Plt Count 245 Assessment and Plan - Problems (Diagnosis) (1) Acute CHF Current Visit: Yes Status: Acute (2) Venous stasis dermatitis of both lower extremities Current Visit: Yes Status: Acute (3) Leg edema Current Visit: Yes Status: Acute (4) Morbid obesity due to excess calories Current Visit: Yes Status: Acute - Plan Admit to the medical floor. Start IV Lasix. Keep lower extremities elevated. Obtain echocardiogram. Troponin trended negative. Recent venous Doppler of lower extremities unremarkable, no DVT. Fluid restriction. Monitor intake and output. No fever, no leukocytosis. Erythema is bilateral. Cellulitis is unlikely - Advance Directives Does patient have a Living Will: No Does patient have a Durable POA for Healthcare: No
--- NOTE | 2021-05-09 12:45 | RAD REPORT ---
EXAM DESCRIPTION: US - Extrem Venous W Compress Otoniel - 05/09/2021 12:35 pm CLINICAL HISTORY: Pain;Swelling Bilateral leg edema and swelling. COMPARISON: Extrem Venous W Compress Otoniel dated 05/04/2021 TECHNIQUE: Real-time sonographic interrogation of the left and right lower extremity deep venous sys tems was performed. FINDINGS: Normal compressibility, flow augmentation, phasic flow and spontaneous flow is identified in both the left and right lower extremity deep venous systems. IMPRESSION: No sonographic evidence of left or right lower extremity deep venous thrombosis.
--- NOTE | 2021-05-09 13:17 | RAD REPORT ---
EXAM DESCRIPTION: CT - Chest For Pe Angio - 05/09/2021 1:08 pm CLINICAL HISTORY: Chest pain. Chest pain;Dyspnea COMPARISON: No comparisons TECHNIQUE: CT angiogram of the pulmonary arteries was performed with MIP. All CT scans are performed using dose optimization technique as appropriate and may include automated exposure control or mA/KV adjustment according to patient size. FINDINGS: No evidence of pulmonary thromboembolism. No acute aortic finding demonstrated. Aberrant right subclavian artery noted, normal variant. Mild interstitial pulmonary edema is suspected. No significant pericardial or pleural fluid. No concerning bony finding. IMPRESSION: No evidence of pulmonary thromboembolism. Mild interstitial pulmonary edema.
[2021-05-09 13:28] LABS: ALT/SGPT 40 U/L (12-78); AST/SGOT 25 U/L (15-37); Albumin 3.4 g/dL (3.4-5.0); Alkaline Phosphatase 99 U/L (45-117); BUN Blood Urea Nitrogen 13 mg/dL (7-18); Bicarbonate 30 mmol/L (21-32); Bilirubin Direct < 0.1 mg/dL (0-0.2); Bilirubin Total 0.5 mg/dL (0.2-1.0); Glucose Level 101 mg/dL (74-106); Lipase 58 U/L (73-393); Magnesium 1.9 mg/dL (1.8-2.4); NT PRO-BNP 134 pg/mL (<125); Potassium 4.1 mmol/L (3.5-5.1); Protein, Total 7.5 g/dL (6.4-8.2); Sodium Level 141 mmol/L (136-145); Troponin (Emerg Dept Use Only) < 0.02 ng/mL (0.0-0.045)
[2021-05-09] MEDS ORDERED: FUROSEMIDE 20 MG/ 2ML VIAL ONE (13:51)
[2021-05-09] MEDS ORDERED: INFLUENZA VACCINE (for 6+ mo) 0.5 ML DOSE IMVAC ONE (16:00)
[2021-05-09 17:05] VITALS: BMI 57.2
[2021-05-09] MEDS: FUROSEMIDE 40 MG/4 ML VIAL IV SCH (17:23)
[2021-05-09] MEDS: TRAMADOL HCL 50 MG TAB PO PRN ×2 (17:32→22:53)
[2021-05-09] MEDS ORDERED: MORPHINE 2 MG/ML SYR IM ONE (20:09)
[2021-05-10] MEDS: MORPHINE 2 MG/ML SYR IM PRN ×4 (00:07→13:03)
[2021-05-10 05:41] LABS: Absolute Lymphocytes (CBC) 1.4 K/uL (0.7-4.9); Basophils % 0.6 % (0-1.3); Hematocrit 35.9 % (36.0-45.0); Lymphocytes % 23.8 % (15.3-44.8); MPV 7.3 fL (7.6-11.3); RBC Red Blood Cell Count 4.27 M/uL (3.86-4.86)
[2021-05-10 06:03] LABS: BUN Blood Urea Nitrogen 12 mg/dL (7-18); Bicarbonate 30 mmol/L (21-32); Glucose Level 94 mg/dL (74-106); Magnesium 2.2 mg/dL (1.8-2.4); Phosphorus 3.9 mg/dL (2.5-4.9); Potassium 3.7 mmol/L (3.5-5.1); Sodium Level 142 mmol/L (136-145)
[2021-05-10] MEDS ORDERED: POTASSIUM CL SA 10 MEQ TAB PO ONE (06:18)
[2021-05-10] MEDS: TRAMADOL HCL 50 MG TAB PO PRN ×3 (07:36→21:44)
[2021-05-10] MEDS: FUROSEMIDE 40 MG/4 ML VIAL IV SCH ×2 (08:29→16:23)
[2021-05-10] MEDS: POTASSIUM CL SA 10 MEQ TAB PO SCH (08:29)
[2021-05-10] MEDS: ASPIRIN EC 81 MG TAB PO SCH (08:29)
[2021-05-10] MEDS: ENOXAPARIN 40 MG/0.4 ML SQ SCH (08:30)
--- NOTE | 2021-05-10 12:23 | P.DS ---
Admission Date: 05/09/21 Discharge Date: 05/10/21 Disposition: ROUTINE DISCHARGE Discharge Condition: FAIR Reason for Admission: Shortness of breath, lower extremity swelling - Problems (1) Acute CHF Current Visit: Yes Status: Acute (2) Venous stasis dermatitis of both lower extremities Current Visit: Yes Status: Acute (3) Leg edema Current Visit: Yes Status: Acute (4) Morbid obesity due to excess calories Current Visit: Yes Status: Acute Brief History of Present Illness: 50-year-old morbidly obese woman with no known past medical history presented to the emergency department with a complaint bilateral lower extremity redness and swelling that has not responded outpatient therapy with lasix. She also reports progressive shortness of breath. This is her 3rd visit to the ED over the past 2 weeks. She denied any chest pain. She stated she is undergoing work-up for weight reduction surgery. CTA thorax done in the emergency department demonstrated mild pulmonary edema. No leukocytosis. Initial troponin negative. Patient is admitted for CHF exacerbation that has failed outpatient therapy. Hospital Course: Patient placed under observation on the medical floor and treated with IV Lasix for CHF and bilateral lower extremity edema. Patient also has venous stasis dermatitis of lower extremities which improved with IV Lasix. Echocardiogram done. Troponin trended negative. Patient discharged with increased Lasix dose to 40 mg twice a day for at least 1 week and continue with 40 mg daily. She is informed she will need a sleep study to evaluate for sleep apnea.. Vital Signs/Physical Exam: Temp Pulse Resp BP Pulse Ox 97.3 F 79 15 105/50 L 95 05/10/21 12:00 05/10/21 12:00 05/10/21 12:00 05/10/21 12:00 05/10/21 12:00 General: Alert, In no apparent distress, Oriented x3, Obese Neck: Supple, JVD not distended Respiratory: Clear to auscultation bilaterally, Normal air movement Cardiovascular: Regular rate/rhythm, Normal S1 S2, Edema (Bilateral legs) Gastrointestinal: Soft and benign, Non-distended Musculoskeletal: Swelling (Mild bilateral legs swelling and tenderness), Erythema (Bilateral legs) Neurological: Normal speech, Normal strength at 5/5 x4 extr Laboratory Data at Discharge: WBC 6.10 K/uL (4.3-10.9) D 05/10/21 05:25 Hgb 11.9 g/dL (12.0-15.0) L 05/10/21 05:25 Hct 35.9 % (36.0-45.0) L 05/10/21 05:25 Plt Count 209 K/uL (152-406) 05/10/21 05:25 PT 11.9 SECONDS (9.5-12.5) 05/09/21 11:26 INR 1.03 05/09/21 11:26 Sodium 142 mmol/L (136-145) 05/10/21 05:25 Potassium Cancelled 05/10/21 09:00 BUN 12 mg/dL (7-18) 05/10/21 05:25 Creatinine 0.64 mg/dL (0.55-1.3) 05/10/21 05:25 Glucose 94 mg/dL (74-106) 05/10/21 05:25 Phosphorus 3.9 mg/dL (2.5-4.9) 05/10/21 05:25 Magnesium 2.2 mg/dL (1.8-2.4) 05/10/21 05:25 Total Bilirubin 0.5 mg/dL (0.2-1.0) 05/09/21 11:26 AST 25 U/L (15-37) 05/09/21 11:26 ALT 40 U/L (12-78) 05/09/21 11:26 Alkaline Phosphatase 99 U/L (45-117) 05/09/21 11:26 Troponin I < 0.02 ng/mL (0.0-0.045) 05/09/21 18:33 Lipase 58 U/L (73-393) L 05/09/21 11:26 Home Medications: Aspirin [Aspirin EC] 81 mg PO DAILY #30 tablet. 05/10/21 Furosemide [Lasix*] 40 mg PO BID #35 tab 05/10/21 Potassium Chloride 10 meq PO DAILY #30 05/10/21 traMADol HCL [Ultram*] 50 mg PO Q6H PRN #20 tab 05/10/21 New Medications: Aspirin [Aspirin EC] 81 mg PO DAILY #30 tablet. Furosemide [Lasix*] 40 mg PO BID #35 tab Potassium Chloride 10 meq PO DAILY #30 traMADol HCL [Ultram*] 50 mg PO Q6H PRN #20 tab PRN Reason: Pain Scale 5-7 (Moderate) Diet: AHA Activity: Ad roosevelt Followup: Yung Ayala PA [Primary Care Provider] - 1-2 Weeks
[2021-05-10] MEDS ORDERED: ACETAMINOPHEN 325 MG TABLET PO PRN (16:00)
[2021-05-10] MEDS ORDERED: CETIRIZINE HCL 5 MG TABLET PO ONE (16:30)
[2021-05-11 06:01] LABS: Absolute Lymphocytes (CBC) 1.4 K/uL (0.7-4.9); Basophils % 0.9 % (0-1.3); Hematocrit 36.7 % (36.0-45.0); Lymphocytes % 21.5 % (15.3-44.8); MPV 7.3 fL (7.6-11.3); RBC Red Blood Cell Count 4.35 M/uL (3.86-4.86)
[2021-05-11 06:10] LABS: Potassium 3.8 mmol/L (3.5-5.1)
--- NOTE | 2021-05-11 07:22 | ECHO ---
HEIGHT: 5 ft 11 in WEIGHT: 410 lb 2 oz DATE OF STUDY: 05/10/[address]: kiran vilchis 2-DIMENSIONAL: YES M.MODE: YES DOPPLER: YES COLOR FLOW: YES TDS: YES PORTABLE: NO DEFINITY: NO BUBBLE STUDY: NO DIAGNOSIS: CHF EXACERBATION CARDIAC HISTORY: CATHERIZATION: NO SURGERY: NO PROSTHETIC VALVE: NO PACEMAKER: NO MEASUREMENTS (cm) DIASTOLIC (NORMALS) SYSTOLIC (NORMALS) IVSd 1.3 (0.6-1.2) LA Diam 3.2 (1.9-4.0) LVEF 56% LVIDd 4.0 (3.5-5.7) LVIDs 2.9 (2.0-3.5) %FS 29% LVPWd 1.4 (0.6-1.2) Ao Diam 2.7 (2.0-3.7) 2 DIMENSIONAL ASSESSMENT: RIGHT ATRIUM: NORMAL LEFT ATRIUM: NORMAL RIGHT VENTRICLE: NORMAL LEFT VENTRICLE: NORMAL TRICUSPID VALVE: NORMAL MITRAL VALVE: NORMAL PULMONIC VALVE: NORMAL AORTIC VALVE: NORMAL PERICARDIAL EFFUSION: NONE AORTIC ROOT: NORMAL LEFT VENTRICULAR WALL MOTION: NORMAL DOPPLER/COLOR FLOW: MILD AORTIC REGURGITATION. COMMENTS: NORMAL LEFT VENTRICULAR EJECTION FRACTION 55-60%. NORMAL WALL MOTION. MILD AORTIC REGURGITATION. TECHNOLOGIST: Yonis HINDS
[2021-05-11] MEDS: ASPIRIN EC 81 MG TAB PO SCH (08:23)
[2021-05-11] MEDS: POTASSIUM CL SA 10 MEQ TAB PO SCH (08:23)
[2021-05-11] MEDS: FUROSEMIDE 40 MG/4 ML VIAL IV SCH (08:23)
[2021-05-11] MEDS: ENOXAPARIN 40 MG/0.4 ML SQ SCH (08:23)
[2021-05-11] MEDS ORDERED: POTASSIUM CL SA 10 MEQ TAB PO ONE (09:00)
[2021-05-11 09:10] VITALS: BP 113/61; TEMP 96.7
[2021-05-11 09:18] VITALS: O2SAT 94
[2021-05-11] MEDS: TRAMADOL HCL 50 MG TAB PO PRN (09:49)
--- NOTE | 2021-05-11 18:06 | P.DS ---
Admission Date: 05/09/21 Discharge Date: 05/11/21 Disposition: ROUTINE DISCHARGE Discharge Condition: FAIR Reason for Admission: Shortness of breath, lower extremity swelling Procedures: Problem list Acute congestive heart failure, diastolic dysfunction Venous stasis dermatitis of bilateral lower extremities Bilateral lower extremity edema Morbid obesity Brief History of Present Illness: 50-year-old morbidly obese woman with no known past medical history presented to the emergency department with a complaint bilateral lower extremity redness and swelling that has not responded outpatient therapy with lasix. She also reports progressive shortness of breath. This is her 3rd visit to the ED over the past 2 weeks. She denied any chest pain. She stated she is undergoing work-up for weight reduction surgery. CTA thorax done in the emergency department demonstrated mild pulmonary edema. No leukocytosis. Initial troponin negative. Patient is admitted for CHF exacerbation that has failed outpatient therapy. Hospital Course: Patient placed under observation on the medical floor and treated with IV Lasix for CHF and bilateral lower extremity edema. Patient also has venous stasis dermatitis of lower extremities which improved with IV Lasix. Echocardiogram done. Troponin trended negative. Patient discharged with increased Lasix dose to 40 mg twice a day for at least 1 week and continue with 40 mg daily. She is informed she will need a sleep study to evaluate for sleep apnea. Discharge was delayed a day due to patient not having a ride and not feeling well enough to go home. Vital Signs/Physical Exam: General: Alert, In no apparent distress, Oriented x3, Obese Neck: Supple, JVD not distended Respiratory: Clear to auscultation bilaterally, Normal air movement Cardiovascular: Regular rate/rhythm, Normal S1 S2, trace to 1+Edema (Bilateral legs) Gastrointestinal: Soft and benign, Non-distended Musculoskeletal: Swelling (Mild bilateral legs swelling and tenderness) Neurological: Normal speech, Normal strength at 5/5 x4 extr Temp Pulse Resp BP Pulse Ox 96.7 F L 77 14 113/61 97 05/11/21 08:00 05/11/21 08:00 05/11/21 08:00 05/11/21 08:00 05/11/21 08:00 Laboratory Data at Discharge: WBC 6.70 K/uL (4.3-10.9) 05/11/21 05:39 Hgb 12.3 g/dL (12.0-15.0) 05/11/21 05:39 Hct 36.7 % (36.0-45.0) 05/11/21 05:39 Plt Count 230 K/uL (152-406) 05/11/21 05:39 PT 11.9 SECONDS (9.5-12.5) 05/09/21 11:26 INR 1.03 05/09/21 11:26 Sodium 140 mmol/L (136-145) 05/11/21 05:39 Potassium 3.8 mmol/L (3.5-5.1) 05/11/21 05:39 BUN 18 mg/dL (7-18) 05/11/21 05:39 Creatinine 0.73 mg/dL (0.55-1.3) 05/11/21 05:39 Glucose 97 mg/dL (74-106) 05/11/21 05:39 Phosphorus 3.9 mg/dL (2.5-4.9) 05/10/21 05:25 Magnesium 2.2 mg/dL (1.8-2.4) 05/10/21 05:25 Total Bilirubin 0.5 mg/dL (0.2-1.0) 05/09/21 11:26 AST 25 U/L (15-37) 05/09/21 11:26 ALT 40 U/L (12-78) 05/09/21 11:26 Alkaline Phosphatase 99 U/L (45-117) 05/09/21 11:26 Troponin I < 0.02 ng/mL (0.0-0.045) 05/09/21 18:33 Lipase 58 U/L (73-393) L 05/09/21 11:26 Home Medications: Aspirin [Aspirin EC] 81 mg PO DAILY #30 tablet. 05/10/21 Furosemide [Lasix*] 40 mg PO BID #35 tab 05/10/21 Potassium Chloride 10 meq PO DAILY #30 05/10/21 Potassium Oral Tab [Klor-Con 10 mEq Tab*] 10 meq PO DAILY #30 tab 05/10/21 traMADol HCL [Ultram*] 50 mg PO Q6H PRN #20 tab 05/10/21 New Medications: Aspirin [Aspirin EC] 81 mg PO DAILY #30 tablet. Potassium Oral Tab [Klor-Con 10 mEq Tab*] 10 meq PO DAILY #30 tab Furosemide [Lasix*] 40 mg PO BID #35 tab Potassium Chloride 10 meq PO DAILY #30 traMADol HCL [Ultram*] 50 mg PO Q6H PRN #20 tab PRN Reason: Pain Scale 5-7 (Moderate) Diet: AHA Activity: Ad roosevelt Followup: Yung Ayala PA [Primary Care Provider] - 1-2 Weeks Rigo White MD [ACTIVE - CAN ADMIT] - 1 Week Time spent managing pt's care (in minutes): 45
--- NOTE | 2021-05-20 20:06 | P.PN ---
Subjective Date of Service: 05/10/21 Chief Complaint: Shortness of breath, lower extremity swelling Patient reports significant improvement in her shortness of breath. Physical Examination - Vital Signs Temperature: 96.7 F Blood Pressure: 113/61 Pulse: 77 Respirations: 14 Pulse Ox (%): 97 - Physical Exam General: Alert, In no apparent distress, Oriented x3, Obese Neck: JVD not distended Respiratory: Diminished Cardiovascular: Regular rate/rhythm, Normal S1 S2 Gastrointestinal: Normal bowel sounds, Soft and benign, Non-distended Integumentary: No rashes Assessment And Plan - Current Problems (Diagnosis) (1) Acute CHF Status: Acute (2) Venous stasis dermatitis of both lower extremities Status: Acute (3) Leg edema Status: Acute (4) Morbid obesity due to excess calories Status: Acute - Plan Continue Lasix. Keep lower extremities elevated. Echocardiogram is pending. Troponin trended negative. Recent venous Doppler of lower extremities unremarkable, no DVT. Fluid restriction. Monitor intake and output. No fever, no leukocytosis. Erythema is bilateral. Cellulitis is unlikely
--- OUTSIDE RECORDS SUMMARY | 2021-05-28 10:01 | XMS REPORT | Continuity of Care Document ---
:1970 Author Organization [facility] t Address [address] [place] [address] Care Team Providers Name Role Phone NO, PCP Primary Care Physician Unavailable Kirk Earl Attending Clinician Unavailable Maria De Jesus BRAVO Attending Clinician Unavailable Payers Payer Name Policy Type Policy Number Effective Date Expiration Date S ource Problems Condition Condition Condition Status Onset Resolution Last Treating Co mments Source Name Details Category Date Date Treatment Clinician Date Knee pain Problem Active [facility] Weakness Problem Active [facility] Headache Problem Active [facility] Allergies, Adverse Reactions, Alerts Allergy Allergy Status Severity Reaction(s) Onset Inactive Treating Comm ents Source Name Type Date Date Clinician No Known DA Active [facility] [place] [facility]: [facility] No Known DA Active [facility] -[facility] [place] 00:[facility]: [facility] 00 [facility] Social History Social Habit Start Date Stop Date Quantity Comments Source Sex Assigned At [birth year] Female [facility] - 00:[facility]:00 [facility]00 [facility] Medications Ordered Filled Start Stop Current Ordering Indication Dosage Frequency Signature Comments Components Source Medication Medication Date Date Medication? Clinician (SIG) Name Name Butalb/Acet Butalb/Acet Yes [address] [facility] aminophen/C aminophen/C 5-23 Hours for [facility] - affeine affeine 08:42: Headache Pat ient (Fioricet (Fioricet 00 s 50-300-40 50-300-40 Medic al Mg Capsule) Mg Capsule) C enter 1 Each 1 Each CAPSULE CAPSULE Vital Signs Vital Name Observation Time Observation Value Comments Source Weight 2019-12-07 06:23:00 400 [lb_av] [facility] [place] BMI (Body Mass 2019-12-07 06:23:00 57.4 kg/m2 [facility] - Index) Patients [facility] Procedures Procedure Date / Time Performed Performing Clinician [facility] e Computed tomography of 2019-12-07 00:00:00 [facility] - brain without Patients Medical radiopaque contrast Center Plan of Care Planned Activity Planned Date Details Comments Source Instructions Osteoarthritis [facility] - Patients [facility] [place] Instructions Chest Pain - Noncardiac [facility] - Patients [facility] Instructions Headache - Migraine [facility] - (Adult) Patients [facility] Instructions Sprains - Knee [facility] - Patients [facility] Encounters Start End Encounter Admission Attending Care Care Encounter Source Date/Time Date/Time Type Type Clinicians Facility Department ID 2020-10-16 Inpatient [facility] ENDO [id number] [facility] 14:00:00 , Kirk [id number] [facility] 2019-12-07 2019-12-07 Departed 1 SHELLY [facility]'s [id number] [facility] [address] 06:17:00 09:36:00 Emergency [facility] Patients 60 [facility] es - Room [facility] Results Test Description Test Time Test Comments Results Result Comments Source SURGICAL SPECIMENS 2020-10-21 08:19:00 Test Item Value Reference Range Interpretation Comme nts SURGICAL RUN SPECIMENS DATE: 10/21/20 [facility] - LAB PAGE 1 RUN TIME: (test code 0819 Specimen Inquiry RUN USER: INTERFACE = SURG) PATIE NT: NATACHA CEBALLOS LOC: ERIC U #: [id number] AGE/SX: 50/F ROOM: RE10/16/20[facility] DR: Kirk Earl MD : 66 BED : DIS: STATUS: SOO [facility] TLOC: SPEC #: [id number] RECD: 10/16/20 STATUS: BHARATH ROLLINS #: [id number] DON: 10/16/[address] [facility] [address]: Kirk Earl MD ENTERED: 10/16/20 SP TYPE: SURG OTHR DR: Efren Katz oc Undefined ProviderORDERED: PATHGM4, PATH SPEC, H E STAIN HISTOLOGY: TISSUE ID BLK PCS RENA LEV / PROCEDURE DISPOSITION ____ ___ ___ ___ ___ ANTRUM BIOPSY A 1 3 TISSUES: A. ANTRUM BIOPSY - Gastric Antrum Bx ADDITIONAL TESTS ASR DISCLAIMER FOR IMMUNOHISTOCHEMISTRY: T his test was developed and its performance characteristics determined by the [facility]. It has not been cleared or approved by the US Food and Drug Administration. The [facility] has determined that such clearance or approval is not necessary. The test is used for clinica l purposes. It should not be regarded as investigational or for research. [facility] is certified under CLIA-88 (Clinical Laboratory Improvement Amendment of 198 8) as qualified to perform high-complexity clinical laboratory testing. All controls sh ow appropriate reactivity. CLINICAL HISTORY Gastritis. FINAL DIAGNOSIS STOMA CH, ANTRUM, BIOPSY: - ANTRAL MUCOSA WITH REACTIVE GASTROPATHY - NEGATIVE FOR HELICOB ACTER PYLORI BY IMMUNOHISTOCHEMISTRY - NO INTESTINAL METAPLASIA, DYSPLASIA, OR MA LIGNANCY IS IDENTIFIED CPT: 12832, 81773 GROSS DESCRIPTION Received in [facility] labeled with the patient's name, medical record number, and "gastric antrum biopsy" are two rivera soft tissue biopsies which measure 0.2 cm and 0.4 cm in greatest dimensions. They are submitted in toto in ramonita Ortiz MD/ph CONTINUED ON NEXT PAGE RUN DATE: 10/21/20 [facility] - LAB PAGE 2 RUN TIME: 818 Specimen Inquiry RUN USER: INTERFACE SPEC #: [id number] PATIENT: RALFNATACHA GOYAL #[id number] (Continued) ------ MICROSCOPIC DESCRIPTION Performed. ----- Signed SIGNATURE ON BARBARA Apoorva Moreira MD 10/21/20 0819 END OF REPORT Novel Coronavirus 2018 [id number] 19:08:00 Test Item Value Reference Range Interpretation Comments Novel Coronavirus Not Detected Not Detected Testing wa s performed 2019 Inhouse (test using the Aptima code = COVNONPUI) SARS-CoV-2 assay.This nucleic acid amplification t est was developed and itsperformance characteristics determined by Ahsan otero. Nucleic acid amplification t ests include RT-PCR and TMA. This test has n ot been FDA cleared ora pproved. This test has b een authorized by Joanie HEBERT under anEmergency Use Authorization ( EUA). This test is onlyauthorized for the duration of reno e the declaration thatcircumstanc es exist justifying the authorization o f theemergency us e of in vitro diagnosti c tests for detection lqLSHP-DqL-5 vi arvind and/or diagnosi s of COVID-19 infect ionunder section 564(b)( 1) of the Act, 21 U.S .C. 360bbb-3(b)(1), unless the authorizati on is terminated or revokedsooner.W hen diagnostic test ing is negative, the possibility of afalse negative result should be considered i n the contextof a pat ient's recent exposure s and the presence of clinical signs and sympt oms consistent with COVID-19. Anind ividual without symptom s of COVID-19 and wh o is notshedding [place] S-CoV-2 virus would exp ect to have a negative (not detected) resul t in this assay. CHEST SINGLE (PORTABLE)2019-12-07 07:36:00 [place] [address] Patient Name: NATACHA CEBALLOS MR #: [id number]: 1970 Age/Sex: 49/F Req #: [id number] Adm Physician:Ordered by: DEE SHEIKH DO Report #: [id number] Location: ER Room/Bed: Procedure: [id number] DX/CHEST SINGLE (PORTABLE) Exam Date: 12/07/19 Exam Time: 0640 REPORT STATUS: Signed Examination: Single AP view of the chest. COMPARISON: None. INDICATION: Chest pain, shortness of breath, weakness IMPRESSION: 1. Lines and Tubes: None 2. Lungs are grossly clear. No consolidation or effusion. 3. Cardiomediastinal silhouette is normal. Pulmonary vasculature is normal. 4. No acute bony abnormalities. Signed by: Dr. Heriberto Lopez M.D. on 12/07/2019 7:36 AM Dictated By: HERIBERTO LOPEZ MD 5 Transcribed By: KARLOS on 12/07/19735 COPY TO: DEE SHEIKHT BRAIN [id number] 07:25:00 [place] [address] Patient Name: NATACHA CEBALLOS MR #: [id number]: 1970 Age/Sex: 49/F Req #: [id number] Adm Physician:Ordered by: DEE SHEIKH DO Report #: [id number] Location: ER Room/Bed: Procedure: [id number] CT/CT BRAIN WO ExamDate: 12/07/19 Exam Time: 0640 REPORT STATUS: Signed CT BRAIN WO HISTORY: Headache COMPARISON: None. TECHNIQUE: Noncontrast axial scans were obtained from skull base to the vertex. Coronal and sagittal reconstructions obtained from the axial data. One or more of the following dose reduction techniques were used: Automated exposure control, adjustment of the mA and/or kV according to patient size, and/or utilization of iterative reconstruction technique. DISCUSSION: Scalp/Skull: Unremarkable. Brain sulci: Appropriate for patient's age. Ventricles: Normal in size and configuration. No hydrocephalus. Extra-axial spaces: No masses or fluid collections. Mild carotid siphon calcifications. Parenchyma: No abnormal densities. No mass, hemorrhage, or large vascular territory acute infarct. Dural sinuses: No abnormal densities. Sellar/Suprasellar region: Nonspecific enlarged empty sella. Skull base: Intact. Incidental findings: None. IMPRESSION: 1. No acute intracranial abnormalities. 2. Nonspecific empty sella. Signed by: Dr. Keegan Sandoval M.D. on 12/07/2019 7:29 AM Dictated By: KEEGAN SANDOVAL MD 8 Transcribed By: KARLOS on 12/07/19728 COPY TO: DEE SHEIKH DOSerum or plasma total bilirubin measurement (mass/volume) 2019-12-07 06:17:00 Test Item Value Reference Range Interpretation Comments Total Bilirubin (test code = 1975-2) 0.5 0.2-1.2 [facility] less than one hour [id number] 06:17:00 Test Item Value Reference Range Interpretation Comments Aspartate Amino Transf (AST/SGOT) (test 13 5-34 code = Aspartate Amino Transf (AST/SGOT)) [facility] alanine aminotransferase measurement (enzymatic activity/volume)2019-12-07 06:17:00 Test Item Value Reference Range Interpretation Comments Alanine Aminotransferase (ALT/SGPT) 16 0-55 (test code = 1742-6) [facility] protein measurement (mass/volume)2019-12-07 06:17:00 Test Item Value Reference Range Interpretation Comments Total Protein (test code = 2885-2) 7.8 6.5-8.1 [facility] albumin measurement (mass/volume)2019-12-07 06:17:00 Test Item Value Reference Range Interpretation Comments Albumin (test code = 1751-7) 3.6 3.5-5.0 [facility]Pl[facility] globulin measurement (mass/volume) 2019-12-07 06:17:00 Test Item Value Reference Range Interpretation Comments Globulin (test code = 95610-4) 4.2 2.3-3.5 [facility] albumin/globulin mass [id number] 06:17:00 Test Item Value Reference Range Interpretation Comments Albumin/Globulin Ratio (test code = 0.9 0.8-2.0 1759-0) [facility] alkaline phosphatase measurement (enzymatic activity/volume)2019-12-07 06:17:00 Test Item Value Reference Range Interpretation Comments Alkaline Phosphatase (test code = 111 40-150 6768-6) [facility] HospitalBNP [id number]-dTou0033-26-23 06:17:00 Test Item Value Reference Range Interpretation Comments B-Type Natriuretic Peptide (test code < 10.0 0-100 = 17522-6) [facility] creatine kinase measurement (enzymatic activity/volume)2019-12-07 06:17:00 Test Item Value Reference Range Interpretation Comments Creatine Kinase (test code = 2157-6) 31 29-168 [facility] plasma creatine kinase MB measurement (mass/volume)2019-12-07 06:17:00 Test Item Value Reference Range Interpretation Comments Creatine Kinase MB (test code = 0.30 0-5.0 99662-7) [facility] HospitalTroponin I measurement by highly sensitive enzyme fuwiuvmatyb6900-12-05 06:17:00 Test Item Value Reference Range Interpretation Comments Troponin I (test code = 32115-0) 0.004 0-0.300 [facility]Bl[facility] leukocytes automated count (number/volume)2019-12-07 06:17:00 Test Item Value Reference Range Interpretation Comments White Blood Count (test code = 6690-2) 8.08 4.8-10.8 [facility] erythrocytes automated count (number/volume)2019-12-07 06:17:00 Test Item Value Reference Range Interpretation Comments Red Blood Count (test code = 789-8) 5.11 3.6-5.1 [facility] HospitalBlood hemoglobin measurement (moles/volume)2019-12-07 06:17:00 Test Item Value Reference Range Interpretation Comments Hemoglobin (test code = 16949-8) 14.0 12.0-16.0 [facility] HospitalAutomated blood hematocrit (volume fraction)2019-12-07 06:17:00 Test Item Value Reference Range Interpretation Comments Hematocrit (test code = 4544-3) 44.0 34.2-44.1 [facility] HospitalAutomated erythrocyte mean corpuscular skyhse2829-46-99 06:17:00 Test Item Value Reference Range Interpretation Comments Mean Corpuscular Volume (test code = 86.1 81-99 787-2) [facility] HospitalAutomated erythrocyte mean corpuscular hemoglobin (mass per erythrocyte)2019-12-07 06:17:00 Test Item Value Reference Range Interpretation Comments Mean Corpuscular Hemoglobin (test code 27.4 28-32 = 785-6) [facility] HospitalAutomated erythrocyte mean corpuscular hemoglobin concentration measurement (mass/volume)2019-12-07 06:17:00 Test Item Value Reference Range Interpretation Comments Mean Corpuscular Hemoglobin Concent 31.8 31-35 (test code = 786-4) [facility] HospitalRDW XhwAn-Wpe2640-43-23 06:17:00 Test Item Value Reference Range Interpretation Comments Red Cell Distribution Width (test code 13.7 11.7-14.4 = 16757-4) [facility] HospitalAutomated blood platelet count (count/volume)2019-12-07 06:17:00 Test Item Value Reference Range Interpretation Comments Platelet Count (test code = 777-3) 291 140-360 [facility] HospitalAutomated blood segmented neutrophil count as percentage of total uavttnqmwz9712-70-66 06:17:00 Test Item Value Reference Range Interpretation Comments Neutrophils (%) (Auto) (test code = 61.1 38.7-80.0 32932-8) [facility] HospitalAutomated blood lymphocyte count as percentage ot total aigsthstyq5297-17-97 06:17:00 Test Item Value Reference Range Interpretation Comments Lymphocytes (%) (Auto) (test code = 28.8 18.0-39.1 736-9) [facility] HospitalAutomated blood monocyte count as percentage of total gmsxgyscpr2923-67-12 06:17:00 Test Item Value Reference Range Interpretation Comments Monocytes (%) (Auto) (test code = 7.2 4.4-11.3 5905-5) [facility] HospitalAutomated blood eosinophil count as percentage of total vhqfiyuljb8453-41-63 06:17:00 Test Item Value Reference Range Interpretation Comments Eosinophils (%) (Auto) (test code = 1.7 0.0-6.0 713-8) [facility] HospitalAutomated blood basophil count as percentage of total jvefdtrydj8950-32-96 06:17:00 Test Item Value Reference Range Interpretation Comments Basophils (%) (Auto) (test code = 0.7 0.0-1.0 706-2) [facility] HospitalFluoroscopic procedure less than one hour uyuqdzsk3937-01-81 06:17:00 Test Item Value Reference Range Interpretation Comments IM GRANULOCYTES % (test code = IM 0.5 0.0-1.0 GRANULOCYTES %) [facility] HospitalAutomated blood neutrophil count 2019-12-07 06:17:00 Test Item Value Reference Range Interpretation Comments Neutrophils # (Auto) (test code = 4.9 2.1-6.9 751-8) [facility] HospitalBlood lymphocytes count (number/volume) 2019-12-07 06:17:00 Test Item Value Reference Range Interpretation Comments Lymphocytes # (Auto) (test code = 2.3 1.0-3.2 20752-9) [facility]Blmin[facility] monocytes automated count (number/volume)2019-12-07 06:17:00 Test Item Value Reference Range Interpretation Comments Monocytes # (Auto) (test code = 742-7) 0.6 0.2-0.8 [facility] HospitalAutomated blood eosinophil count 2019-12-07 06:17:00 Test Item Value Reference Range Interpretation Comments Eosinophils # (Auto) (test code = 0.1 0.0-0.4 711-2) [facility] HospitalAutomated blood basophil count (count/volume)2019-12-07 06:17:00 Test Item Value Reference Range Interpretation Comments Basophils # (Auto) (test code = 704-7) 0.1 0.0-0.1 [facility] HospitalFluoroscopic procedure less than one hour yjelemqv8870-32-98 06:17:00 Test Item Value Reference Range Interpretation Comments Absolute Immature Granulocyte (auto 0.04 0-0.1 (test code = Absolute Immature Granulocyte (auto) [facility] sodium measurement (moles/volume)2019-12-07 06:17:00 Test Item Value Reference Range Interpretation Comments Sodium Level (test code = 2951-2) 139 136-145 [facility] plasma potassium measurement (moles/volume)2019-12-07 06:17:00 Test Item Value Reference Range Interpretation Comments Potassium Level (test code = 2823-3) 4.5 3.5-5.1 [facility] plasma chloride measurement (moles/volume)2019-12-07 06:17:00 Test Item Value Reference Range Interpretation Comments Chloride Level (test code = 2075-0) 107 98-107 [facility] or plasma carbon dioxide, total measurement (moles/volume)2019-12-07 06:17:00 Test Item Value Reference Range Interpretation Comments Carbon Dioxide Level (test code = 8-9) [facility] plasma anion [id number] 06:17:00 Test Item Value Reference Range Interpretation Comments Anion Gap (test code = 70176-8) 13.5 8-16 [facility] plasma urea nitrogen measurement (mass/volume)2019-12-07 06:17:00 Test Item Value Reference Range Interpretation Comments Blood Urea Nitrogen (test code = 02-08 3094-0) [facility] creatinine measurement (mass/volume)2019-12-07 06:17:00 Test Item Value Reference Range Interpretation Comments Creatinine (test code = 2160-0) 0.76 0.57-1.11 [facility] plasma urea nitrogen/creatinine mass coimk6146-94-51 06:17:00 Test Item Value Reference Range Interpretation Comments BUN/Creatinine Ratio (test code = 01-08 3097-3) [facility] HospitalEstimated glomerular filtration rate (GFR) jggbujivddgug4538-23-45 06:17:00 Test Item Value Reference Range Interpretation Comments Estimat Glomerular Filtration Rate > 60 >60 (test code = 728676633) Ranges were taken from the National Kidney Disease Education Program and the National Kidney Foundation literature.Reference ranges:60 or greater: Fpvqbj39- 59 (for 3 consecutive months): Chronic kidneydisease 15 or less: Kidney failure [facility] HospitalGlucose umngufipnif8237-37-58 06:17:00 Test Item Value Reference Range Interpretation Comments Glucose Level (test code = OGB1334) 94 74-118 [facility] plasma calcium measurement (mass/volume)2019-12-07 06:17:00 Test Item Value Reference Range Interpretation Comments Calcium Level (test code = 02674-3) 9.3 8.4-10.2 [facility]
== END 2021-05-11 09:57 | disposition home or self-care (01) ==
LOC: ER 10:26 → ERHOLD 12:37 → INTOOBSV 12:37 → 2ND 13:36
PROVIDERS: ADMIT Internal Medicine; ATTEND Internal Medicine
DX: I50.31 Acute diastolic (congestive) heart failure (principal); I87.2 Venous insufficiency (chronic) (peripheral); E66.01 Morbid (severe) obesity due to excess calories; Z68.43 Body mass index [BMI] 50.0-59.9, adult; Z20.822 Contact with and (suspected) exposure to COVID-19
CPT/HCPCS: 0240U; 36415; 71045; 71275; 80048; 80076; 82565; 83605; 83690; 83735; 83880; 84100; 84484; 85025; 85610; 87040; 93005; 93306; 93970; 94760; 96372; 99285; G0378; J1650; J1940; J2270; Q9967